=== PATIENT | female | born 1995 | race Asian ===

== ENCOUNTER 2017-09-01 17:11 | Emergency (ER) | payer OTHER ==
[2017-09-01 19:35] LABS: Hematocrit 39 % (35-47); Hemoglobin 12.9 g/dl (12.0-16.0); Mean Corpuscular HGB Conc 33 g/dl (31-36); Mean Corpuscular Hemoglobin 28 pg (27-31); Mean Corpuscular Volume 85 fL (80-97); Mean Platelet Volume 7.2 um3 (7.4-10.4); Platelet Count 247 10^3/ul (150-450); Red Blood Count 4.53 10^6/ul (4.0-5.4); Red Cell Distribution Width 14 % (10.5-15); White Blood Count 3.9 10^3/ul (3.5-10.8)
[2017-09-01] MEDS ORDERED: NS 0.9% 1000 ML* 1,000 ML IV ONE (19:43)
[2017-09-01 21:06] LABS: Urine Appearance Clear; Urine Blood 1+ (Negative); Urine Color Straw; Urine Ketones Trace (Negative); Urine Protein Negative (Negative); Urine Specific Gravity 1.003 (1.010-1.030); Urine Urobilinogen Negative (Negative)
[2017-09-01 22:38] VITALS: BP 115/79
--- NOTE | 2017-09-04 13:24 | ED ---
Jean Noguera Nilda, scribed for Edvin Benavides MD on 09/01/17 at 2001 . Dizziness - HPI Summary HPI Summary: This patient is a 21 year old F presenting to [facility] with a chief complaint of constant lightheadedness since last night. The patient rates the pain 0/10 in severity. Symptoms aggravated by exertion and alleviated by rest. She notes she may have had possible food poisoning a few days ago (vomiting). Patient reports chills, fatigue, intermittent left outer thigh pain (3 months, worse with movement), and loss of appetite secondary to food poisoning (rice and bread). Patient denies diaphoresis, burning with urination, nausea, body aches, insomnia , and cough. She states she has never been lightheaded for this long. She states increased stress due to school and that she has not been going out with friends much lately. She denies daily medications. LNMP 5 days ago. - History Of Current Complaint Chief Complaint: EDDizziness Stated Complaint: DIZZINESS Time Seen by Provider: 09/01/17 19:07 Hx Obtained From: Patient Onset/Duration: Still Present, Suddenly Timing: Constant Character: Lightheaded Aggravating Factor(s): Exertion Alleviating Factor(s): Rest Associated Signs And Symptoms: Positive: Other: - lightheadedness, chills, fatigue, intermittent left outer thigh pain (3 months, worse with movement), and loss of appetite secondary to food poisoning (rice and bread). Patient denies diaphoresis, burning with urination, nausea, body aches, insomnia, and cough. - Allergies/Home Medications Allergies/Adverse Reactions: Allergies Allergy/AdvReac Type Severity Reaction Status Date / Time No Known Allergies Allergy Verified 09/01/17 17:29 PMH/Surg Hx/FS Hx/Imm Hx Sensory History: Denies: Hx Legally Blind EENT History: Denies: Hx Deafness Infectious Disease History: No Infectious Disease History: Denies: Traveled Outside the [place] in Last 30 Days - Family History Known Family History: Negative: Cardiac Disease, Hypertension, Diabetes - Social History Occupation: Student Alcohol Use: Rare Substance Use Type: Reports: None Smoking Status (MU): Never Smoked Tobacco Review of Systems Positive: Chills, Fatigue. Negative: Fever, Skin Diaphoresis Negative: Erythema Negative: Sore Throat Negative: Chest Pain Negative: Shortness Of Breath, Cough Positive: Vomiting - resolved, Other - loss of appetite. Negative: Abdominal Pain, Nausea Negative: burning, dysuria, hematuria Positive: Other - intermittent left upper thigh pain. Negative: Myalgia, Edema Negative: Rash Neurological: Other - dizziness (lightheadedness); negative insomnia All Other Systems Reviewed And Are Negative: Yes Physical Exam - Summary Physical Exam Summary: Constitutional: Well-developed, Well-nourished, Alert. (-) Distressed Skin: Warm, Dry HENT: Normocephalic; Atraumatic Eyes: Conjunctiva normal Neck: Musculoskeletal ROM normal neck. (-) JVD, (-) Stridor, (-) Tracheal deviation Cardio: Rhythm regular, rate normal, Heart sounds normal; Intact distal pulses; The pedal pulses are 2+ and symmetric. Radial pulses are 2+ and symmetric. (-) Murmur Pulmonary/Chest wall: Effort normal. (-) Respiratory distress, (-) Wheezes, (-) Rales Abd: Soft, (-) Tenderness, (-) Distension, (-) Guarding, (-) Rebound Musculoskeletal: (-) Edema Lymph: (-) Cervical adenopathy Neuro: Alert, Oriented x3 Psych: Mood and affect Normal Triage Information Reviewed: Yes Vital Signs On Initial Exam: Initial Vitals Temp Pulse Resp BP Pulse Ox 98.3 F 61 17 130/88 100 09/01/17 17:26 09/01/17 17:26 09/01/17 17:26 09/01/17 17:26 09/01/17 17:26 Vital Signs Reviewed: Yes Diagnostics - Vital Signs Vital Signs Temp Pulse Resp BP Pulse Ox 09/01/17 19:30 57 15 129/82 100 09/01/17 19:00 63 14 118/74 100 09/01/17 18:57 99.2 F 09/01/17 18:30 64 14 120/85 100 09/01/17 18:13 77 126/80 97 09/01/17 17:26 98.3 F 61 17 130/88 100 - Laboratory Lab Results: Lab Results 09/01/17 Range/Units 19:28 WBC 3.9 (3.5-10.8) 10^3/ul RBC 4.53 (4.0-5.4) 10^6/ul Hgb 12.9 (12.0-16.0) g/dl Hct 39 (35-47) % MCV 85 (80-97) fL MCH 28 (27-31) pg MCHC 33 (31-36) g/dl RDW 14 (10.5-15) % Plt Count 247 (150-450) 10^3/ul MPV 7.2 L (7.4-10.4) um3 Result Diagrams: 09/01/17 19:28 09/01/17 19:28 Lab Statement: Any lab studies that have been ordered have been reviewed, and results considered in the medical decision making process. Re-Evaluation - Re-Evaluation First Eval Re-Evaluation Time: 20:24 Change: Improved Comment: Pt states she's finishing her period. This could account for hematuria. Feels much better after IV fluids Dizzy Course/Dx - Course Assessment/Plan: This patient is a 21 year old F presenting to [facility] with a chief complaint of constant lightheadedness since last night. The patient rates the pain 0/10 in severity. Symptoms aggravated by exertion and alleviated by rest. She notes she may have had possible food poisoning a few days ago ( vomiting). Patient reports chills, fatigue, intermittent left outer thigh pain ( 3 months, worse with movement), and loss of appetite secondary to food poisoning (rice and bread). Patient denies diaphoresis, burning with urination, nausea, body aches, insomnia, and cough. She states she has never been lightheaded for this long. She states increased stress due to school and that she has not been going out with friends much lately. She denies daily medications. LNMP 5 days ago. Chemistry negative, UA negative, and orthostatics are negative. Hematuria not actionable. Blood cultures to follow. Dizziness could reflect significant stress from school that she reports. Pt is stable and will be D/C with Dx dizziness and f/u with [facility]. Pt understands and is agreeable with plan. - Diagnoses Provider Diagnoses: Dizziness Discharge - Sign-Out/Discharge Documenting (check all that apply): Discharge - Discharge Plan Condition: Stable Disposition: HOME Patient Education Materials: Dizziness (ED) Forms: *School Release Referrals: [facility] - Vikas JIMENEZ [Primary Care Provider] - 2 Days Additional Instructions: Follow up with [facility] in 2-3 days. RETURN TO THE EMERGENCY DEPARTMENT FOR CHANGING OR WORSENING SYMPTOMS. The documentation as recorded by the Jean greenfield Nilda accurately reflects the service I personally performed and the decisions made by me, Edvin Benavides MD.
== END 2017-09-01 22:53 | disposition home or self-care (01) ==
LOC: ED 17:11
DX: R42 Dizziness and giddiness (principal); R68.83 Chills (without fever); R53.83 Other fatigue; M79.652 Pain in left thigh; Z32.02 Encounter for pregnancy test, result negative
CPT/HCPCS: 36415; 80053; 80307; 80320; 81003; 81015; 84702; 85027; 87086; 96360; 99283; G0480